=== PATIENT | male | born 1985 | race American Indian/Alaskan Native ===

== ENCOUNTER 2016-10-07 12:02 | Emergency (ER) | payer SELFPAY ==
--- NOTE | 2016-10-07 12:11 | Emergency Department Report ---
Chief Complaint: Sore Throat Stated Complaint: POSS UPPER RESP INFECTION Time Seen by Provider: 10/07/16 12:06 - HPI History of Present Illness: PT c/o sore throat x 1 week. PT states he thinks his tongue is swollen because his throat hurts worse when he swallows. - ROS Review of Systems: +sore throat - fever - Exam Physical Exam: pt looks well, non toxic clear post nasal drainage MSE screening note: Focused history and physical exam performed. Due to findings the following was ordered: lab ED Disposition for MSE Condition: Stable
[2016-10-07 12:12] VITALS: BP 125/82
[2016-10-07] MEDS ORDERED: MOTRIN PO ONE (13:13)
--- NOTE | 2016-10-07 18:25 | Emergency Department Report ---
Entered by MONSE HAMILTON, acting as scribe for LOUIS PALACIOS NP. ED ENT HPI - General Chief complaint: Sore Throat Stated complaint: POSS UPPER RESP INFECTION Time Seen by Provider: 10/07/16 12:06 Source: patient Mode of arrival: Ambulatory Limitations: No Limitations - History of Present Illness Initial comments: This is a 30 y/o male nontoxic, well nourished in appearance, no acute signs of distress presents with sore throat that has been constant for 1 week. Associated Sx include difficulty swallowing due to pain and pt notes normal PO intake. Pt denies fever, chills, chest pain, abd pain, SOB, n/v, numbness, stiff neck, VILLATORO or tingling. OTC medication includes Advil Cold and Flu tablets. No additional Sx. NKDA. Denies PMH. complaint: sore throat -: week(s) (1) Location: throat Severity: mild Severity scale (0 -10): 4 Quality: constant Consistency: constant Improves with: none Worsens with: swallowing Associated Symptoms: pain with swallowing, sore throat. denies: fever, cough, gum swelling, toothache, tinnitus, hearing loss, discharge from ear, rhinorrhea - Related Data Previous Rx's Medication Instructions Recorded Last Taken Type Amoxicillin 500 mg PO BID #20 capsule 10/07/16 Unknown Rx predniSONE [Deltasone] 20 mg PO BID #10 tab 10/07/16 Unknown Rx Allergies Allergy/AdvReac Type Severity Reaction Status Date / Time No Known Allergies Allergy Verified 10/07/16 12:12 ED Dental HPI - General Chief complaint: Sore Throat Stated complaint: POSS UPPER RESP INFECTION Time Seen by Provider: 10/07/16 12:06 Source: patient Mode of arrival: Ambulatory Limitations: No Limitations - History of Present Illness MD complaint: sore throat - Related Data Previous Rx's Medication Instructions Recorded Last Taken Type Amoxicillin 500 mg PO BID #20 capsule 10/07/16 Unknown Rx predniSONE [Deltasone] 20 mg PO BID #10 tab 10/07/16 Unknown Rx Allergies Allergy/AdvReac Type Severity Reaction Status Date / Time No Known Allergies Allergy Verified 10/07/16 12:12 ED Review of Systems Comment: All other systems reviewed and negative Constitutional: denies: chills, fever Eyes: denies: eye pain, eye discharge, vision change ENT: throat pain. denies: ear pain Respiratory: denies: cough, shortness of breath, wheezing Cardiovascular: denies: chest pain, palpitations Endocrine: no symptoms reported Gastrointestinal: denies: abdominal pain, nausea, diarrhea Genitourinary: denies: urgency, dysuria Musculoskeletal: denies: back pain, joint swelling, arthralgia Skin: denies: rash, lesions Neurological: as per HPI Psychiatric: denies: anxiety, depression ED Past Medical Hx - Past Medical History Previous Medical History?: No - Surgical History Past Surgical History?: Yes Additional Surgical History: knee - Social History Smoking Status: Never Smoker Substance Use Type: Alcohol - Medications Home Medications: Home Medications Medication Instructions Recorded Confirmed Last Taken Type Amoxicillin 500 mg PO BID #20 capsule 10/07/16 Unknown Rx predniSONE [Deltasone] 20 mg PO BID #10 tab 10/07/16 Unknown Rx ED Physical Exam - General Limitations: No Limitations General appearance: alert, in no apparent distress - Head Head exam: Present: atraumatic, normocephalic - Eye Eye exam: Present: normal appearance, PERRL, EOMI Pupils: Present: normal accommodation - ENT ENT exam: Present: mucous membranes moist - Expanded ENT Exam Expanded Ear exam: Present: normal external inspection Mouth exam: Present: normal external inspection, tongue normal. Absent: drooling, trismus, muffled voice, tongue elevation, laceration Teeth exam: Present: normal inspection Throat exam: Positive: tonsillar erythema, tonsillomegaly (2+), tonsillar exudate. Negative: R peritonsillar mass, L peritonsillar mass - Neck Neck exam: Present: normal inspection, full ROM. Absent: tenderness, meningismus, lymphadenopathy, thyromegaly - Respiratory Respiratory exam: Present: normal lung sounds bilaterally. Absent: respiratory distress, wheezes, rales, rhonchi, stridor, chest wall tenderness, accessory muscle use, decreased breath sounds, prolonged expiratory - Cardiovascular Cardiovascular Exam: Present: regular rate, normal rhythm, normal heart sounds. Absent: bradycardia, tachycardia, irregular rhythm, systolic murmur, diastolic murmur, rubs, gallop - GI/Abdominal GI/Abdominal exam: Present: soft, normal bowel sounds. Absent: distended, tenderness, guarding, rebound, rigid, diminished bowel sounds, mass, bruit - Extremities Exam Extremities exam: Present: normal inspection, normal capillary refill. Absent: full ROM, tenderness, pedal edema, joint swelling, calf tenderness - Back Exam Back exam: Present: normal inspection, full ROM. Absent: tenderness, CVA tenderness (R), CVA tenderness (L), muscle spasm, paraspinal tenderness, vertebral tenderness, rash noted - Neurological Exam Neurological exam: Present: alert, oriented X3, CN II-XII intact, normal gait, reflexes normal. Absent: altered, abnormal gait, motor sensory deficit - Psychiatric Psychiatric exam: Present: normal affect, normal mood - Skin Skin exam: Present: warm, dry, intact, normal color. Absent: rash ED Course Vital Signs 10/07/16 12:08 Temperature 98.5 F Pulse Rate 74 Respiratory 16 Rate Blood Pressure 125/82 O2 Sat by Pulse 100 Oximetry ED Medical Decision Making - Medical Decision Making Ed course: This is a 30-year-old male presents with exudative tonsillitis. 1- A Streptococcus a rapid test had been obtained prior to my examination with the results of negative. Throat culture has been submitted and is pending for results. 2- after my physical exam, patient received Solu-Medrol 40 mg IM in the ED. 3- patient received amoxicillin 500 mg by mouth twice a day for 10 days and was instructed to finish full course of antibiotics as prescribed. 4- patient was instructed to follow up with his primary care doctor in 3-5 days or if symptoms worsen such as difficulty breathing, chest pain, shortness of breath, fever, chills, headache or stiff neck reported back to emergency room as was possible. 5- at time time of discharge, the patient does not seem toxic or ill in appearance. No acute signs of distress noted. Patient agrees to discharge treatment plan of care. No further questions noted by the patient. ED Disposition Clinical Impression: Tonsillitis with exudate Disposition: DC-01 TO HOME OR SELFCARE Is pt being admited?: No Does the pt Need Aspirin: No Condition: Stable Instructions: Tonsillitis (ED), Ibuprofen (By mouth), Prednisone (By mouth), Amoxicillin (By mouth) Additional Instructions: Follow up with your primary care doctor in 3-5 days or if symptoms worsen such as difficulty breathing, chest pain, shortness of breath, fever, chills, headache or stiff neck reported back to emergency room as was possible. Take full course of prednisone and amoxicillin as prescribed. Prescriptions: Amoxicillin 500 mg PO BID #20 capsule predniSONE [Deltasone] 20 mg PO BID #10 tab Referrals: PRIMARY CARE, [Primary Care Provider] - 3-[address] [facility] [Outside] - 3-5 Days [facility] [Outside] - 3-5 Days AYALA JARQUIN JR, MD [Staff Physician] - 3-5 Days Forms: Work/School Release Form(ED) This documentation as recorded by the [employer] shafer RYAN,accurately reflects the service I personally performed and the decisions made by PHILIP salinas MARTIN, [employer].
== END 2016-10-07 13:47 | disposition home or self-care (01) ==
LOC: ED 12:02
DX: J03.90 Acute tonsillitis, unspecified (principal)
CPT/HCPCS: 87116; 87430; 96372; 99282; J2920